=== PATIENT | female | born 1985 | race Caucasian/White ===

== ENCOUNTER 2021-05-26 09:05 | Outpatient (CLI) | payer BC, SELFPAY ==
[2021-05-26 09:22] VITALS: BP 142/96; PULSE 100; RESP 18; TEMP 36.5; O2SAT 97; BMI 45.7
[2021-05-26] MEDS: 0.9% Saline Lock 10 ML Syringe IV (09:23)
[2021-05-26 09:45] VITALS: BP 134/92; PULSE 82; RESP 16; TEMP 36.6; O2SAT 99
[2021-05-26 10:30] VITALS: BP 138/92; PULSE 81; RESP 16; TEMP 36.6; O2SAT 98
== END 2021-05-26 23:59 | disposition home or self-care (01) ==
LOC: MS3OUT 09:06 → MS3 09:07
PROVIDERS: Referring Provider Nurse Practitioner Adult Health; Visit Provider Nurse Practitioner Adult Health
DX: Z23 Encounter for immunization (principal); U07.1 COVID-19
CPT/HCPCS: J7050; M0243; A4216; Q0244